=== PATIENT | female | born 1945 | race Two or more races ===

== ENCOUNTER 2017-07-03 09:41 | Outpatient (CLI) | payer OTHER | END 2017-07-03 10:36 | disposition home or self-care (01) | LOC: RAD 501 09:41 | DX: M54.5 Low back pain (principal); M25.661 Stiffness of right knee, not elsewhere classified ==

== ENCOUNTER → 2017-07-04 | Outpatient (CLI) | payer OTHER | END | disposition home or self-care (01) | LOC: MRI 11:15 | DX: M54.5 Low back pain (principal); M54.16 Radiculopathy, lumbar region | CPT/HCPCS: 72148 ==

== ENCOUNTER → 2017-07-15 | Emergency (ER) | payer OTHER ==
[~2017-07-15] VITALS: Ht 165.1 cm; Wt 69.4 kg
[~2017-07-15] MED LIST: AMLODIPINE BES2.5 MG PO; ATORVASTATIN CA40 MG PO; LOSARTAN POTAS100 MG PO; NABUMETONE500 MG PO
== END | disposition home or self-care (01) ==
LOC: ER 14:48
DX: K59.09 Other constipation (principal)

== ENCOUNTER → 2017-09-28 | Outpatient (CLI) | payer OTHER | END | disposition home or self-care (01) | LOC: NUCLEAR 09-20 11:00 | DX: M81.0 Age-related osteoporosis without current pathological fracture (principal) ==

== ENCOUNTER 2018-02-05 11:02 | Outpatient (CLI) | payer OTHER | END 2018-02-05 11:06 | disposition home or self-care (01) | LOC: MAMO-SONO 11:02 | DX: Z12.31 Encounter for screening mammogram for malignant neoplasm of breast (principal); Z87.898 Personal history of other specified conditions; N64.4 Mastodynia ==

== ENCOUNTER 2018-02-08 07:54 | Outpatient (CLI) | payer OTHER | END 2018-02-08 08:01 | disposition home or self-care (01) | LOC: NUCLEAR 07:54 | DX: I25.10 Atherosclerotic heart disease of native coronary artery without angina pectoris (principal) | CPT/HCPCS: 78452; 93017; A9500 ==

== ENCOUNTER 2018-07-01 08:20 | Outpatient (CLI) | payer OTHER | END 2018-07-01 08:29 | disposition home or self-care (01) | LOC: EDBD 08:20 → MRI 08:20 | DX: M54.2 Cervicalgia (principal); M54.12 Radiculopathy, cervical region | CPT/HCPCS: 72141 ==

== ENCOUNTER 2018-09-20 09:08 | Outpatient (CLI) | payer OTHER | END 2018-09-20 09:12 | disposition home or self-care (01) | LOC: RAD 09:08 | DX: M54.2 Cervicalgia (principal) ==

== ENCOUNTER 2019-02-10 11:43 | Outpatient (CLI) | payer OTHER | END 2019-02-10 15:09 | disposition home or self-care (01) | LOC: MAMO-SONO 11:43 | DX: Z12.31 Encounter for screening mammogram for malignant neoplasm of breast (principal); Z87.898 Personal history of other specified conditions; N64.4 Mastodynia; M81.8 Other osteoporosis without current pathological fracture ==

== ENCOUNTER → 2019-03-21 | Outpatient (CLI) | payer OTHER | END | disposition home or self-care (01) | LOC: RAD 09:45 → SONOGRAMA 09:45 | DX: M16.0 Bilateral primary osteoarthritis of hip (principal) ==

== ENCOUNTER → 2019-12-15 | Outpatient (CLI) | payer OTHER | END | disposition home or self-care (01) | LOC: NUCLEAR 09:00 → EDBD 09:02 | PROVIDERS: ATTEND Specialist | DX: K81.0 Acute cholecystitis (principal) | CPT/HCPCS: 78227; A9537; J2805 ==

== ENCOUNTER 2020-05-03 08:58 | Outpatient (CLI) | payer OTHER | END 2020-05-03 09:00 | disposition home or self-care (01) | LOC: MAMO-SONO 08:58 | PROVIDERS: ATTEND Obstetrics & Gynecology Gynecology | DX: Z12.31 Encounter for screening mammogram for malignant neoplasm of breast (principal); N64.4 Mastodynia ==

== ENCOUNTER 2020-05-05 09:46 | Outpatient (CLI) | payer OTHER | END 2020-05-05 09:47 | disposition home or self-care (01) | LOC: NUCLEAR 09:46 | PROVIDERS: ATTEND Obstetrics & Gynecology Gynecology | DX: M81.0 Age-related osteoporosis without current pathological fracture (principal) ==